=== PATIENT | female | born 1970 | race Caucasian/White ===

== ENCOUNTER 2018-08-09 17:11 | Emergency (ER) | payer MEDICAID ==
[~2018-08-09] VITALS: Ht 162.6 cm; Wt 72.2 kg
--- NOTE | 2018-08-09 17:24 | NUR ---
N/V THAT STARTED TODAY, DIARRHEA X2 DAYS. RUNNING NOSE, NASAL CONGESTION, AND "JUST FEELING SICK" SINCE 08/07/18. NECK STIFFNESS, PAIN, HEADACHE, RIGHT EYE INTERMITTANT BLINDNESS STARTED IN MID JUNE
[2018-08-09] MEDS ORDERED: CANNABIDIOL (17:32)
[2018-08-09] MEDS ORDERED: DIPHENHYDRAMINE 50 MG/ML, 1ML IVPush ONE (18:00)
[2018-08-09] MEDS ORDERED: LOPERAMIDE 2 MG CAPSULE PO ONE (18:00)
[2018-08-09] MEDS ORDERED: SODIUM CHLORIDE 0.9% 1,000ML IVBOLUS ONE (18:00)
[2018-08-09] MEDS ORDERED: PROCHLORPERAZINE 5 MG/ML, 2ML IVPush ONE (18:00)
[2018-08-09 18:09] LABS: BASOPHILS # (AUTO) 0.02 x10^3/uL (0-0.1); BASOPHILS % (AUTO) 0 % (0-1); EOSINOPHILS # (AUTO) 0.09 x10^3/uL (0-0.4); EOSINOPHILS % (AUTO) 1 % (1-7); LYMPHOCYTES # (AUTO) 0.33 x10^3/uL (1-3.4); LYMPHOCYTES % (AUTO) 3 % (22-44); MD NO; MEAN CORPUSCULAR HEMOGLOBIN 30.8 pg (27.0-34.8); MEAN CORPUSCULAR HGB CONC 32.8 g/dL (32.4-35.8); MEAN CORPUSCULAR VOLUME 93.8 fL (80-100); MEAN PLATELET VOLUME 7.2 fL (7.4-10.4); MONOCYTES # (AUTO) 0.22 x10^3/uL (0.2-0.8); MONOCYTES % (AUTO) 2 % (2-9); NEUTROPHILS # (AUTO) 10.24 x10^3/uL (1.8-6.8); NEUTROPHILS % (AUTO) 94 % (42-75); PLATELET COUNT 278 x10^3/uL (130-400); RED BLOOD COUNT 4.95 x10^6/uL (3.82-5.3); RED CELL DISTRIBUTION WIDTH 13.5 % (9.6-15.2)
[2018-08-09] MEDS ORDERED: LOPERAMIDE 2 MG CAPSULE ONE (18:14)
[2018-08-09] MEDS ORDERED: PROCHLORPERAZINE 5 MG/ML, 2ML ONE (18:14)
[2018-08-09] MEDS ORDERED: DIPHENHYDRAMINE 50 MG/ML, 1ML ONE (18:14)
[2018-08-09 18:22] LABS: ALANINE AMINOTRANSFERASE 20 U/L (12-78); ANION GAP 9 mmol/L (5-15); CALCIUM 8.8 mg/dL (8.5-10.1); CHLORIDE 108 mmol/L (98-107); CREATININE 0.71 mg/dL (0.55-1.02)
[2018-08-09 18:24] LABS: ALKALINE PHOSPHATASE 84 U/L (45-117); BILIRUBIN,TOTAL 0.5 mg/dL (0.2-1.0); TOTAL PROTEIN 7.7 g/dL (6.4-8.2)
--- NOTE | 2018-08-09 18:40 | NUR ---
PT MEDICATED PER EMAR. PIV PLACED. PT TOLERATED PROCEDURE WELL. PT UNABLE TO URINATE AT THIS TIME. NO ACUTE DISTRES NOTED. NO OTHER REQUESTS AT THIS TIME.
[2018-08-09] MEDS ORDERED: SODIUM CHLORIDE FLUSH 10ML SYR IVF ONE (19:00)
--- NOTE | 2018-08-09 19:18 | NUR ---
REPORT FROM MIGUEL ANGEL OLIVERA. PT RESTING AND FEELING SLIGHTLY BETTER. FLUIDS ALMOST DONE INFUSING. WAIT FOR PT TO PROVIDE UA. CALL LIGHT IN REACH
--- NOTE | 2018-08-09 19:43 | NUR ---
pt up to commode for ua.
[2018-08-09 20:13] VITALS: BP 122/71
--- NOTE | 2018-08-09 20:14 | NUR ---
UA IN LAB. PT BACK IN BED. VSS. PT HAS NO OTHER NEEDS AT THIS TIME. CALL LIGHT IN REACH
[2018-08-09 20:15] LABS: CLOSTRIDIUM DIFFICILE ANTIGEN NEGATIVE; CLOSTRIDIUM DIFFICILE TOXIN NEGATIVE (Negative)
[2018-08-09 20:24] LABS: MICROSCOPIC INDICATED
[2018-08-09 20:40] LABS: CULTURE INDICATED? YES
[2018-08-09] MEDS ORDERED: KETOROLAC 30 MG/1 ML IVPush ONE (20:50)
[2018-08-09] MEDS ORDERED: KETOROLAC 30 MG/1 ML ONE (20:53)
--- NOTE | 2018-08-09 21:04 | NUR ---
Patient given discharge instructions and they have confirmed that they understand the instructions. Patient ambulatory with steady gait.
== END 2018-08-09 21:07 | disposition home or self-care (01) ==
LOC: ED 20:12
DX: G44.52 New daily persistent headache (NDPH) (principal); B34.9 Viral infection, unspecified; M79.18 Myalgia, other site; F43.10 Post-traumatic stress disorder, unspecified; Z90.710 Acquired absence of both cervix and uterus
CPT/HCPCS: 36415; 80053; 81001; 83690; 85025; 87086; 87324; 89055; 96361; 96374; 96375; 99284; J0780; J1200; J1885; J7030

== ENCOUNTER 2019-03-12 16:45 | Emergency (ER) | payer MEDICAID ==
[~2019-03-12] VITALS: Ht 165.1 cm; Wt 75.0 kg
[~2019-03-12 16:45] MED LIST: CANNABIDIOL
[2019-03-12 16:59] VITALS: BP 124/82
[2019-03-12 17:51] LABS: RAPID INFLUENZA A Negative (Negative); RAPID INFLUENZA B Negative (Negative)
== END 2019-03-12 18:21 | disposition home or self-care (01) ==
LOC: ED 17:50
DX: J06.9 Acute upper respiratory infection, unspecified (principal); H69.83 Other specified disorders of Eustachian tube, bilateral
CPT/HCPCS: 87400; 99283

== ENCOUNTER 2019-12-29 14:21 | Emergency (ER) | payer MEDICAID ==
[~2019-12-29] VITALS: Ht 167.6 cm; Wt 80.5 kg
[2019-12-29 15:43] LABS: BASOPHILS % (AUTO) 2 % (0-1); EOSINOPHILS % (AUTO) 6 % (1-7); LYMPHOCYTES % (AUTO) 26 % (22-44); MEAN CORPUSCULAR HEMOGLOBIN 30.9 pg (27.0-34.8); MEAN CORPUSCULAR HGB CONC 33.5 g/dL (32.4-35.8); MEAN PLATELET VOLUME 7.4 fL (7.4-10.4); MONOCYTES % (AUTO) 6 % (2-9); NEUTROPHILS % (AUTO) 61 % (42-75); PLATELET COUNT 299 x10^3/uL (130-400); RED BLOOD COUNT 4.51 x10^6/uL (3.82-5.3); RED CELL DISTRIBUTION WIDTH 13.4 % (9.6-15.2)
[2019-12-29 15:44] LABS: MD NO
[2019-12-29 15:45] LABS: MICROSCOPIC AUTO
[2019-12-29 15:46] LABS: ALBUMIN 3.9 g/dL (3.4-5.0); ANION GAP 6 mmol/L (5-15); CHLORIDE 109 mmol/L (98-107); CREATININE 0.69 mg/dL (0.55-1.02)
[2019-12-29 16:16] VITALS: BP 111/77
--- NOTE | 2019-12-29 16:16 | NUR ---
PT UP FOR RECHECK AT THIS TIME
== END 2019-12-29 16:45 ==
LOC: ED 15:30
DX: N95.0 Postmenopausal bleeding (principal); Z90.710 Acquired absence of both cervix and uterus
CPT/HCPCS: 36415; 76830; 80048; 81001; 82040; 85025; 99284